=== PATIENT | male | born 1955 | race Caucasian/White ===

== ENCOUNTER 2023-06-07 10:31 | Emergency (ER) | payer MEDICARE, OTHER ==
[~2023-06-07] VITALS: Ht 170.2 cm; Wt 76.7 kg
[2023-06-07] MEDS ORDERED: ESCITALOPRAM OX20 MG PO (10:47)
[2023-06-07] MEDS ORDERED: PREGABALIN150 MG PO (10:47)
[2023-06-07] MEDS ORDERED: OMEPRAZOLE40 MG PO (10:48)
[2023-06-07] MEDS ORDERED: BACLOFEN10 MG PO (10:48)
[2023-06-07] MEDS ORDERED: PRAMIPEXOLE D0.25 MG PO (10:48)
[2023-06-07] MEDS ORDERED: LEVETIRACETAM500 MG PO (10:48)
[2023-06-07] MEDS ORDERED: CEPHALEXIN500 M1 PO (10:55)
[2023-06-07] MEDS ORDERED: DOXYCYCLINE HY100 MG PO (10:55)
[2023-06-07] MEDS ORDERED: CEPHALEXIN MONOHYDRATE 500 MG CAP PO ONE (11:00)
[2023-06-07 11:25] VITALS: BP 138/74
== END 2023-06-07 11:25 | disposition home or self-care (01) ==
LOC: ED 10:31
DX: L08.89 Other specified local infections of the skin and subcutaneous tissue (principal); B95.8 Unspecified staphylococcus as the cause of diseases classified elsewhere; G35 Multiple sclerosis; Z79.899 Other long term (current) drug therapy
CPT/HCPCS: 87070; 87205; 99283; A9270